=== PATIENT | female | born 1975 | race Caucasian/White ===

== ENCOUNTER 2017-06-24 11:52 | Emergency (ER) | payer BC, OTHER ==
[2017-06-24 12:05] VITALS: BP 118/84; PULSE 67; TEMP 98; BMI 23.8
[2017-06-24] MEDS ORDERED: LIDO 2%/EPI 1:200000 PRESRVFRE (20 ML SDVIAL) ONE (12:29)
[2017-06-24] MEDS ORDERED: DIPHTH,PERTUSS(ACELL),TET VAC 0.5 ML VIAL IM ONE (12:49)
[2017-06-24] MEDS ORDERED: LIDO 2%/EPI 1:200000 PRESRVFRE (20 ML SDVIAL) EP ONE (12:49)
--- NOTE | 2017-06-24 12:50 | PDOC ---
History of Present Illness - General Chief Complaint: Injury Stated Complaint: INJURY TO RIGHT THUMB Time Seen by Provider: 06/24/17 12:45 History Source: Patient Exam Limitations: No Limitations - History of Present Illness Initial Comments: 06/24/17 12:50 41y F hx of hypothyroidism presents with wound to R thumb. pt was slicing zucchinis using a mandolin and her thumb slipped and was caught by the mandolin. Pt put some peroxide on it immediatly and wrapped it with gauze and tape. Pt deneis any numbness/tingling/weakness. Not on any a/c. does not remember last tetanus shot. Past History - Past Medical History Allergies/Adverse Reactions: Allergies Allergy/AdvReac Type Severity Reaction Status Date / Time No Known Allergies Allergy Verified 06/24/17 12:00 Home Medications: Ambulatory Orders Levothyroxine [Synthroid -] 125 mcg PO DAILY 06/24/17 COPD: No Thyroid Disease: Yes - Suicide/Smoking/Psychosocial Hx Smoking History: Never smoked Have you smoked in the past 12 months: No Information on smoking cessation initiated: No Hx Alcohol Use: Yes Drug/Substance Use Hx: No Substance Use Type: None Review of Systems - Review of Systems Able to Perform ROS?: Yes Cardiac (ROS): No: Lightheadedness, Palpitations Integumentary: Yes: Lesions Neurological: No: Numbness, Paresthesia, Weakness Hematologic/Lymphatic: No: Anemia, Easy Bleeding, Easy Bruising, Bleeding Diathesis *Physical Exam - Vital Signs Last Vital Signs Temp Pulse Resp BP Pulse Ox 98.0 F 67 16 118/84 100 06/24/17 11:53 06/24/17 11:53 06/24/17 11:53 06/24/17 11:53 06/24/17 11:53 - Physical Exam Comments: 06/24/17 12:53 General: well appearing in no distress Skin: 2x.5cm skin avulsion on the lateral aspect of the right thumb, oozing/ bleeding Procedures - Consent Consent obtained: Verbal - Laceration/Wound Repair Right Lateral 1st digit Wound Length: to 2.5 cm Wound Explored: clean Wound's Depth, Shape: superficial Irrigated w/ Saline: Yes Anesthesia: 2% Lidocaine w/ Epi Amount of Anesthetic (ccs): 5 Wound Debrided: minimal Suture Size/Type: other (applied lidocain w/ epi directly to wound, surgicel and pressure to control bleeding) Medical Decision Making - Medical Decision Making 06/24/17 12:55 skin avulsion on R thumb - bleeding controlled w/ lido w epi and surgicel wound care instructions given tetanus updated return precatuions were discussed *DC/Admit/Observation/Transfer Diagnosis at time of Disposition: Avulsion of skin of finger Qualifiers: Encounter type: initial encounter Qualified Code(s): S61.209A - Unspecified open wound of unspecified finger without damage to nail, initial encounter - Discharge Dispostion Disposition: HOME Condition at time of disposition: Improved Admit: No - Referrals - Patient Instructions Printed Discharge Instructions: DI for Debridement of a Wound, Infection, or Burn Additional Instructions: Keep the wound dry for 48 hours. Apply bacitracin twice daily. You may wash gently with soap and water after 48 hours. If there is any redeness, swelling, pus, increased bleeding or pain, come back for reevaluation. Print Language: GERMAN - Post Discharge Activity
== END 2017-06-24 12:54 | disposition home or self-care (01) ==
LOC: FER 11:52
PROC: 0HQFXZZ Repair Right Hand Skin, External Approach (ICD-10-PCS; principal; 2017-06-24)
DX: S61.011A Laceration without foreign body of right thumb without damage to nail, initial encounter (principal); W27.4XXA Contact with kitchen utensil, initial encounter; Y93.G3 Activity, cooking and baking; Y92.000 Kitchen of unspecified non-institutional (private) residence as the place of occurrence of the external cause
CPT/HCPCS: 99282-25